=== PATIENT | female | born 1995 | race Caucasian/White ===

== ENCOUNTER → 2021-12-22 12:53 | Outpatient (CLI) | payer OTHER, SELFPAY ==
--- NOTE | 2021-12-22 12:57 | DI.RAD.S_ITS ---
PROCEDURE: XR ELBOW RT MIN 3V INDICATIONS: pain/FALL TECHNIQUE: 3 views of the elbow were acquired. COMPARISON: None. FINDINGS: Bones: There is a nondisplaced fracture involving right radial neck with subtle cortical irregularity.. No suspicious bony lesions. Soft tissues: Moderate to large elbow joint effusion is seen with displacement of anterior and posterior fat pads. No suspicious soft tissue calcifications. IMPRESSION: Nondisplaced fracture through right radial neck with moderate to large joint effusion. Dictated by: Sarwat Watkins M.D. on 12/22/2021 at 12:54 Approved by: Sarwat Watkins M.D. on 12/22/2021 at 12:55
== END ==
PROVIDERS: Referring Provider Nurse Practitioner Family; Visit Provider Nurse Practitioner Family
DX: S52.134A Nondisplaced fracture of neck of right radius, initial encounter for closed fracture (principal); M25.421 Effusion, right elbow; M25.60 Stiffness of unspecified joint, not elsewhere classified; X58.XXXA Exposure to other specified factors, initial encounter
CPT/HCPCS: 73080

== ENCOUNTER → 2022-01-17 15:51 | Outpatient (CLI) | payer OTHER, SELFPAY ==
[2022-01-17 16:22] LABS: COVID19 -Nasal RAPID Negative (Negative)
== END ==
PROVIDERS: Visit Provider Nurse Practitioner Family
DX: R30.0 Dysuria (principal); Z20.822 Contact with and (suspected) exposure to COVID-19
CPT/HCPCS: 87077; 87086; 87186; 87635

== ENCOUNTER → 2022-07-30 13:54 | Outpatient (CLI) | payer OTHER, SELFPAY ==
[2022-07-30 14:33] LABS: Add Manual Diff / Slide Review NO; Basophils Absolute Auto 0 /uL (0-100); Basophils Percent Auto 0.4 % (0-2); Eosinophils Absolute Auto 100 /uL (0-450); Eosinophils Percent Auto 0.6 % (2-4); Hematocrit 39.4 % (36-46); Hemoglobin 13.5 g/dL (12.0-16.0); Lymphocytes Absolute Auto 2600 /uL (1100-4500); Lymphocytes Percent Auto 30.1 % (25-40); Mean Corpuscular HGB Conc 34.2 % (30-36); Mean Corpuscular Hemoglobin 30.4 PG (26-34); Monocytes Absolute Auto 500 /uL (0-900); Monocytes Percent Auto 5.9 % (3-14); Neutrophils Absolute Auto 5400 /uL (1500-7000); Platelet Count 314 X10^3/uL (150-400); Red Blood Cell Count 4.43 X10^6/uL (4.0-5.2); Red Cell Distribution Width 12.3 % (11.6-14.8); White Blood Cell Count 8.6 X10^3/uL (4.5-11.0)
[2022-07-30 14:58] LABS: Appearance Urine UA CLEAR; Bilirubin Urine UA NEGATIVE (NEGATIVE); Color Urine UA YELLOW; Glucose Urine UA NEGATIVE (Negative); Ketones Urine UA NEGATIVE (NEGATIVE); Leukocyte Esterase Urine UA NEGATIVE (NEGATIVE); Nitrite Urine UA NEGATIVE (Negative); Occult Blood Urine UA NEGATIVE (Negative); Protein Urine UA NEGATIVE (Negative); Urobilinogen Urine UA 0.2 E.U./dL (0.2)
[2022-07-30 15:02] LABS: pH Urine UA 5.5 (4.5-8.0)
[2022-07-30 18:02] LABS: HIV 1 & 2 Ab/Ag 4th Gen Combo NEGATIVE (NEGATIVE); Hep C Virus Ab w/Reflex Quant NEGATIVE s/c (NEGATIVE); Hepatitis B Surface Antigen NEGATIVE s/c (NEGATIVE); Rubella Antibody IgG 4.9 IU/mL (>15)
[2022-07-31 08:40] LABS: Varicella IgG Antibody 1161 index (Immune >165)
[2022-08-01 05:19] LABS: RPR Screen Non Reactive (Non Reactive)
== END ==
PROVIDERS: Referring Provider Family Medicine; Visit Provider Family Medicine
DX: Z34.01 Encounter for supervision of normal first pregnancy, first trimester (principal)
CPT/HCPCS: 36415; 80055; 81003; 84144; 86787; 86803; 86850; 86900; 86901; 87086; 87389

== ENCOUNTER 2022-08-20 13:52 | Emergency (ER) | payer OTHER, SELFPAY ==
[2022-08-20 14:00] VITALS: BP 135/91; PULSE 100; RESP 15; TEMP 36.7; O2SAT 98; BMI 33.9
--- NOTE | 2022-08-20 14:06 | DI.US.S_ITS ---
PROCEDURE: US PELVIC COMPLETE INDICATIONS: vaginal bleeding,7 weeks . TECHNIQUE: Real-time scanning was performed of the pelvic organs, with image documentation. Additional endovaginal scanning was necessary due to incomplete visualization of the adnexal and endometrial structures by transabdominal scanning. COMPARISON: None. FINDINGS: Uterus: Uterus is anteverted and normal in size at 8.9 x 4.2 x 5.7 cm. The myometrium is homogeneous. No discrete uterine fibroid is seen. The endometrium measures 15 mm combined thickness. Mildly heterogeneous endometrium is noted. No discrete endometrial mass or fluid. No intrauterine is noted. No definite retained products. Ovaries: The right ovary measures 1.3 x 4 x 1.6 cm, with a calculated ovarian volume of 4.2 cc. The left ovary measures 1.6 x 2.5 x 1.8 cm, with a calculated ovarian volume of 3.7 cc. The ovaries have a normal sonographic appearance. Less than 12 follicles can be seen in each ovary. No adnexal masses are seen. Other: No pathologic free abdominal or pelvic fluid. IMPRESSION: 1. Thickened endometrium with mildly heterogeneous endometrial echotexture. No intrauterine gestation is seen. No discrete endometrial mass is noted. No definite retained products is seen. 2. Normal appearing bilateral ovaries. We strive to produce accurate, complete, and clear reports of imaging services. To assist us in improving patient care, this report was composed using standard report templates and voice recognition software. Therefore, it may contain abnormal punctuation, insertions and/or omissions. Occasional wrong-word or sound-alike substitutions may occur. Though we review the report and make efforts to correct it, we do recommend that the report be read carefully in proper context to recognize any text inaccuracies. Dictated by: Sarwat Watkins M.D. on 08/20/2022 at 14:58 Approved by: Sarwat Watkins M.D. on 08/20/2022 at 15:00
[2022-08-20 14:40] LABS: Add Manual Diff / Slide Review NO; Basophils Absolute Auto 100 /uL (0-100); Basophils Percent Auto 0.8 % (0-2); Eosinophils Absolute Auto 0 /uL (0-450); Eosinophils Percent Auto 0.5 % (2-4); Hematocrit 40.8 % (36-46); Hemoglobin 14.1 g/dL (12.0-16.0); Lymphocytes Absolute Auto 3000 /uL (1100-4500); Lymphocytes Percent Auto 32.4 % (25-40); Mean Corpuscular HGB Conc 34.6 % (30-36); Mean Corpuscular Hemoglobin 30.5 PG (26-34); Monocytes Absolute Auto 500 /uL (0-900); Monocytes Percent Auto 5.3 % (3-14); Neutrophils Absolute Auto 5700 /uL (1500-7000); Platelet Count 274 X10^3/uL (150-400); Red Blood Cell Count 4.64 X10^6/uL (4.0-5.2); Red Cell Distribution Width 12.3 % (11.6-14.8); White Blood Cell Count 9.3 X10^3/uL (4.5-11.0)
[2022-08-20 14:48] LABS: Alanine Aminotransferase 23 IU/L (<35); Albumin 4.2 g/dL (3.5-5.0); Albumin Globulin Ratio 1.4 (1.0-2.8); Alkaline Phosphatase 66 U/L (38-126); Aspartate Aminotransferase 25 IU/L (14-36); BUN Creatinine Ratio 10.9 (6-22); Bilirubin Total 0.2 mg/dL (0.2-1.3); Blood Urea Nitrogen 6 mg/dL (7-17); Calcium 9.4 mg/dL (8.4-10.2); Carbon Dioxide 26 mmol/L (22-32); Chloride 106 mmol/L (98-107); Estimated Glomerular Filt Rate > 60 mL/min (>60); Glucose 75 mg/dL (70-100); HEMOLYSIS < 15 (0-50); Potassium 3.9 mmol/L (3.4-5.1); Sodium 138 mmol/L (137-145); Total Protein 7.2 g/dL (6.3-8.2)
[2022-08-20 15:03] LABS: HCG Quantitative /Beta subunit 14707 mIU/mL
--- NOTE | 2022-08-20 15:43 | ED.PREGNANCY ---
HPI - <Salma tSinson PA-C - Last Filed: 08/20/22 20:01> General Chief complaint: Vaginal Bleeding Stated complaint: sent from [facility] [place] 7 weeks preg. poss.miscariage Time Seen by Provider: 08/20/22 15:42 Source: patient Mode of arrival: Ambulatory Limitations: no limitations History of Present Illness HPI Narrative: 26-year-old female presents with concern for vaginal bleeding that began 2 days ago in the context of 7 weeks . Patient states that her last period started in the very last day of May. Two days ago she was in the shower and she felt some cramping pain and went to the bathroom that she needs to have a bowel movement and had some bleeding. She states the next day she had significant cramping and pain worsened normal. With some small tissue and small clots past as well as some ongoing bleeding. Within the last 24 hours her bleeding has subsided and her pain has become minimal. She presents today with concern for possible miscarriage. She denies persistent abdominal pain, persistent heavy bleeding, dizziness, lightheadedness, shortness of breath or any other symptoms. Related Data Home Medications Medication Instructions Recorded Confirmed prenat.vits,phong,fwj-[id number] 1 tab PO DAILY 07/29/22 07/29/22 Allergies Allergy/AdvReac Type Severity Reaction Status Date / Time cashew nut Allergy Severe Anaphylaxis Verified 08/20/22 14:01 peanut Allergy Severe Swelling Verified 08/20/22 14:01 of Lip/Tongue/Throat Review of Systems <Salma Stinson PA-C - Last Filed: 08/20/22 20:01> Review of Systems Narrative: See HPI Exam <Salma Stinson PA-C - Last Filed: 08/20/22 20:01> Narrative Exam Narrative: GENERAL: 26 year old patient appears stated age. Well-developed patient, in mild distress. HEAD: Atraumatic. Normocephalic. EYES: Pupils equal round and reactive. Extraocular motions intact. No scleral icterus. No injection or drainage. ENT: Nose without bleeding, purulent drainage. Airway patent. NECK: Trachea midline. Non tender CARDIOVASCULAR: Regular rate and rhythm without murmurs, gallops, or rubs. RESPIRATORY: Clear to auscultation. Breath sounds equal bilaterally. No wheezes, rales, or rhonchi. GASTROINTESTINAL: Abdomen soft, non-tender, nondistended, no CVA tenderness. exam: Deferred EXTREMITIES: No edema or joint tenderness. BACK: Nontender without deformity or crepitance. No flank tenderness. NEURO: AOx3. SKIN: No rash or erythema of visible areas Initial Vital Signs Initial Vital Signs: Vital Signs Temperature 98.0 F 08/20/22 14:00 Pulse Rate 100 H 08/20/22 14:00 Respiratory Rate 15 08/20/22 14:00 Blood Pressure 135/91 H 08/20/22 14:00 Pulse Oximetry 98 08/20/22 14:00 Oxygen Delivery Method Room Air 08/20/22 14:00 <hPyllis Dyer DO - Last Filed: 08/21/22 08:04> Initial Vital Signs Initial Vital Signs: Vital Signs Temperature 98.0 F 08/20/22 14:00 Pulse Rate 100 H 08/20/22 14:00 Respiratory Rate 15 08/20/22 14:00 Blood Pressure 135/91 H 08/20/22 14:00 Pulse Oximetry 98 08/20/22 14:00 Oxygen Delivery Method Room Air 08/20/22 14:00 Course <Salma Stinson PA-C - Last Filed: 08/20/22 20:01> Course Course Narrative: Spoke with front line leader +nurse at Dr. Kay's office, Dr. Su's nurse had already seen the ultrasound did discuss with her the need for Dr. Su and order repeat hCG for 72 hour follow-up for her patient. She will share the message and nurses already aware of the ultrasound results. 1620 Orders Ordered: ED Orders 08/20/22 14:06 US pelvic complete Stat 08/20/22 14:20 Complete Blood Count AUTO DIFF Stat Comprehensive Metabolic Panel Stat HCG Quantitative /Beta subunit Stat Type and Screen Stat Vital Signs Vital signs: Vital Signs - 8 hr 08/20/22 14:00 Temperature 98.0 F Pulse Rate 100 H Respiratory Rate 15 Blood Pressure 135/91 H Pulse Oximetry 98 Oxygen Delivery Method Room Air <Phyllis Dyer DO - Last Filed: 08/21/22 08:04> Orders Ordered: ED Orders 08/20/22 14:06 US pelvic complete Stat 08/20/22 14:20 Complete Blood Count AUTO DIFF Stat Comprehensive Metabolic Panel Stat HCG Quantitative /Beta subunit Stat Type and Screen Stat Vital Signs Vital signs: Vital Signs - 8 hr 08/20/22 14:00 Temperature 98.0 F Pulse Rate 100 H Respiratory Rate 15 Blood Pressure 135/91 H Pulse Oximetry 98 Oxygen Delivery Method Room Air MDM - OB/Uterine Contractions <Salma Stinson PA-C - Last Filed: 08/20/22 20:01> Differential Diagnosis Differential diagnosis: Likely other (Vaginal bleeding , miscarriage/spontaneous , ectopic) Medical Records Attestation: I reviewed the patient's medical records. Lab Data Attestation: I reviewed the patient's lab results. 08/20/22 14:20 08/20/22 14:20 Labs: Lab Results 08/20/22 08/20/22 08/20/22 Range/Units 14:20 14:20 14:20 WBC 9.3 (4.5-11.0) X10^3/uL RBC 4.64 (4.0-5.2) X10^6/uL Hgb 14.1 (12.0-16.0) g/dL Hct 40.8 (36-46) % MCV 88.0 (80-100) fL MCH 30.5 (26-34) PG MCHC 34.6 (30-36) % RDW 12.3 (11.6-14.8) % Plt Count 274 (150-400) X10^3/uL Neut % (Auto) 61.0 (50-75) % Lymph % (Auto) 32.4 (25-40) % Mckean % (Auto) 5.3 (3-14) % Eos % (Auto) 0.5 L (2-4) % Baso % (Auto) 0.8 (0-2) % Neut # (Auto) 5700 (8696-9892) /uL Lymph # (Auto) 3000 (7983-7237) /uL Mckean # (Auto) 500 (0-900) /uL Eos # (Auto) 0 (0-450) /uL Baso # (Auto) 100 (0-100) /uL Sodium 138 (137-145) mmol/L Potassium 3.9 (3.4-5.1) mmol/L Chloride 106 (98-107) mmol/L Carbon Dioxide 26 (22-32) mmol/L BUN 6 L (7-17) mg/dL Creatinine 0.55 (0.52-1.04) mg/dL Estimated GFR > 60 (>60) mL/min BUN/Creatinine Ratio 10.9 (6-22) Glucose 75 (70-100) mg/dL Calcium 9.4 (8.4-10.2) mg/dL Total Bilirubin 0.2 (0.2-1.3) mg/dL AST 25 (14-36) IU/L ALT 23 (<35) IU/L Alkaline Phosphatase 66 (38-126) U/L Total Protein 7.2 (6.3-8.2) g/dL Albumin 4.2 (3.5-5.0) g/dL Globulin 3.0 (1.7-4.1) g/dL Albumin/Globulin Ratio 1.4 (1.0-2.8) HCG, Quant 75585 mIU/mL Blood Type O Positive Antibody Screen Negative Imaging Data US Pelvic: My Impression: Agree with Radiology interpretation Radiologist's Impression: [address] [address] Ultrasound Report Signed Patient: Angelica Rosario MR#: [id number] : 1995 Acct:[id number] Age/Sex: 26 / F Date of Service: 08/20/22 Loc: ED Accession Number: [id number] ?? Procedure: US pelvic complete Ordering Provider: Phyllis Dyer D.O. PROCEDURE:? US PELVIC COMPLETE ? INDICATIONS:? vaginal bleeding,7 weeks . ? TECHNIQUE:? Real-time scanning was performed of the pelvic organs, with image documentation.? Additional endovaginal scanning was necessary due to incomplete visualization of the adnexal and endometrial structures by transabdominal scanning.? ? COMPARISON:? None. ? FINDINGS:? ?? Uterus:? Uterus is anteverted and normal in size at 8.9 x 4.2 x 5.7 cm. The myometrium is homogeneous.? No discrete uterine fibroid is seen.? The endometrium measures 15 mm combined thickness.? Mildly heterogeneous endometrium is noted.? No discrete endometrial mass or fluid.? No intrauterine is noted.? No definite retained products. ? Ovaries:? The right ovary measures 1.3 x 4 x 1.6 cm, with a calculated ovarian volume of 4.2 cc. The left ovary measures 1.6 x 2.5 x 1.8 cm, with a calculated ovarian volume of 3.7 cc. The ovaries have a normal sonographic appearance. Less than 12 follicles can be seen in each ovary.? No adnexal masses are seen. ? Other:? No pathologic free abdominal or pelvic fluid. ? ? IMPRESSION:? 1. Thickened endometrium with mildly heterogeneous endometrial echotexture.? No intrauterine gestation is seen.? No discrete endometrial mass is noted.? No definite retained products is seen. ? 2. Normal appearing bilateral ovaries.? ? ? We strive to produce accurate, complete, and clear reports of imaging services. To assist us in improving patient care, this report was composed using standard report templates and voice recognition software. Therefore, it may contain abnormal punctuation, insertions and/or omissions. Occasional wrong-word or sound-alike substitutions may occur. Though we review the report and make efforts to correct it, we do recommend that the report be read carefully in proper context to recognize any text inaccuracies. ? ? Dictated by: Sarwat Watkins M.D. on 08/20/2022 at 14:58 ? ? Approved by: Sarwat Watkins M.D. on 08/20/2022 at 15:00?? Treatment and disposition Shared decision making:: Shared decision-making was used in determining the patient's plan of care in the emergency department and plan for outpatient follow-up. [facility] Narrative Medical decision making narrative: 26-year-old female presents with concern for vaginal bleeding with small amount of passing small clots and tissue over the last 2 days with symptoms resolving/improving in the last 24 hours. Patient is 7 weeks had not yet been evaluated by Ob but had an appointment for 1st ultrasound at [address] Su. HCG at 14,000 today patient's initial hCG level evaluation. Ultrasound today shows no evidence of gestational sac in the uterus and no note of retained products of conception. Given this strongly suspect that the patient did have a spontaneous and counseled her that this is likely the case however she will need repeat hCG levels and 72 hours and depending on which direction these are going she may need repeat ultrasound for further evaluation. Ultrasound did not do full abdomen evaluation and at this point can not rule out a ectopic however I think this is less likely. Did contact Dr. Sauceda office regarding this patient and the need for outpatient labs to be ordered for follow-up. Patient's exam, labs and history were not consistent with significant blood loss, pelvic exam was not performed today due to improvement of symptoms and patient preference. Return precautions were provided, follow-up plan discussed, all questions answered. <Phyllis Dyer, DO - Last Filed: 08/21/22 08:04> Lab Data Labs: Lab Results 08/20/22 08/20/22 08/20/22 Range/Units 14:20 14:20 14:20 WBC 9.3 (4.5-11.0) X10^3/uL RBC 4.64 (4.0-5.2) X10^6/uL Hgb 14.1 (12.0-16.0) g/dL Hct 40.8 (36-46) % MCV 88.0 (80-100) fL MCH 30.5 (26-34) PG MCHC 34.6 (30-36) % RDW 12.3 (11.6-14.8) % Plt Count 274 (150-400) X10^3/uL Neut % (Auto) 61.0 (50-75) % Lymph % (Auto) 32.4 (25-40) % Mckean % (Auto) 5.3 (3-14) % Eos % (Auto) 0.5 L (2-4) % Baso % (Auto) 0.8 (0-2) % Neut # (Auto) 5700 (5751-0656) /uL Lymph # (Auto) 3000 (3575-3347) /uL Mckean # (Auto) 500 (0-900) /uL Eos # (Auto) 0 (0-450) /uL Baso # (Auto) 100 (0-100) /uL Sodium 138 (137-145) mmol/L Potassium 3.9 (3.4-5.1) mmol/L Chloride 106 (98-107) mmol/L Carbon Dioxide 26 (22-32) mmol/L BUN 6 L (7-17) mg/dL Creatinine 0.55 (0.52-1.04) mg/dL Estimated GFR > 60 (>60) mL/min BUN/Creatinine Ratio 10.9 (6-22) Glucose 75 (70-100) mg/dL Calcium 9.4 (8.4-10.2) mg/dL Total Bilirubin 0.2 (0.2-1.3) mg/dL AST 25 (14-36) IU/L ALT 23 (<35) IU/L Alkaline Phosphatase 66 (38-126) U/L Total Protein 7.2 (6.3-8.2) g/dL Albumin 4.2 (3.5-5.0) g/dL Globulin 3.0 (1.7-4.1) g/dL Albumin/Globulin Ratio 1.4 (1.0-2.8) HCG, Quant 63162 mIU/mL Blood Type O Positive Antibody Screen Negative Discharge Plan Departure Patient Disposition: Home Clinical Impression: Vaginal bleeding during , Elevated serum hCG, Activity Restrictions/Additional Instructions: Thank you for letting us be part of your care today in the emergency department. Your labs today looked okay however your hCG level will need to be rechecked in the next 72 hours to see what direction it is trending. As we discussed the ultrasound that we obtained today does not show any evidence of a in your uterus. Most likely this means that because of the bleeding he had been having you likely have had a miscarriage, occasionally there can be a that occurs outside of the uterus and it is for this reason that is very important to recheck your hCG levels and if they are continuing to rise he will need to have repeat ultrasound. I have been in touch with Dr. Su's office and she will be following up ordering repeat lab for you and ultrasound as needed. There is no evidence of an emergent or life threatening illness at this time, but follow up with your doctor in 1-2 days is recommended nonetheless to continue to rule out serious underlying causes of your symptoms. Please call the office for an appointment. Please return to the Emergency Department for any worsening or persistent symptoms. Please take medications as directed. Prescriptions: No Action prenat.vits,phong,[id number] Tablet 1 tab PO DAILY Referrals: Miscellaneous,Doctor, [Primary Care Provider] - Anette Su MD [Physician] - Stand Alone Forms: Patient Portal/API <Phyllis Dyer DO - Last Filed: 08/21/22 08:04> [facility] Att[facility]: I was immediately available in the department for consultation. Documentation has been reviewed.
== END 2022-08-20 16:53 | disposition home or self-care (01) ==
PROVIDERS: Emergency Medicine; Emergency Provider Student in an Organized Health Care Education/Training Program
DX: O20.9 Hemorrhage in early pregnancy, unspecified (principal); E34.9 Endocrine disorder, unspecified
CPT/HCPCS: 76830; 76856; 80053; 84702; 85025; 86850; 86900; 86901; 99281; 99284